=== PATIENT | male | born 1985 | race Caucasian/White ===

== ENCOUNTER 2021-09-28 15:04 | Emergency (ER) | payer BC ==
[~2021-09-28] VITALS: Ht 175.3 cm; Wt 88.5 kg
== END 2021-09-28 16:38 | disposition left against medical advice (07) ==
LOC: FSED 15:08
DX: T24.201A Burn of second degree of unspecified site of right lower limb, except ankle and foot, initial encounter (principal); W40.1XXA Explosion of explosive gases, initial encounter; Y92.89 Other specified places as the place of occurrence of the external cause; M54.9 Dorsalgia, unspecified; G89.29 Other chronic pain